=== PATIENT | male | born 1940 | race Caucasian/White ===

== ENCOUNTER 2020-10-19 23:23 | Inpatient (IN) | payer MEDICARE, SELFPAY ==
--- NOTE | ~2020-10-19 | XR_ITS ---
EXAMINATION: XR CHEST CLINICAL INFORMATION: Shortness of breath COMPARISON: None TECHNIQUE: Frontal view of the chest was obtained. FINDINGS: Diffuse patchy interstitial and alveolar opacities are present throughout both lungs. No appreciable pneumothorax or pleural effusion on these images. Sternal wires and cardiac leads overlie the chest. Cardiac meniscal contours are unremarkable. No acute osseous findings. XR/XR chest 1V IMPRESSION: Patchy diffuse bilateral interstitial and alveolar opacities, most typical of viral pneumonia. Pulmonary edema is on the differential, though felt to be less likely.
[2020-10-19 23:25] VITALS: BP 119/60; PULSE 73; RESP 30; O2SAT 78; BMI 24.8
[2020-10-19 23:30] VITALS: O2SAT 100
[2020-10-19 23:31] VITALS: PULSE 70; RESP 30; O2SAT 100
--- NOTE | 2020-10-19 23:33 | PC.NURSE ---
RT and MD at bedside for primary eval. Pt on Bipap @ 05/08, 100%, satting @ 100%.
--- NOTE | 2020-10-19 23:34 | ECG_ITS ---
Test Reason : DIFF BREATHING Blood Pressure : / mmHG Vent. Rate : 071 BPM Atrial Rate : 071 BPM P-R Int : 200 ms QRS Dur : 122 ms QT Int : 414 ms P-R-T Axes : 091 -30 054 degrees QTc Int : 449 ms Sinus rhythm Left axis deviation Possible Anterior infarct , age undetermined Inferior infarct with ST elevation Abnormal ECG No previous ECGs available Referred By: Soha Hui Electronically Signed By:BETY LANE MD
--- NOTE | 2020-10-19 23:41 | PC.NURSE ---
Labs including BCX x2 and lactic obtained and sent, Pt reports relief on Bipap, remains @ 10/5 and @ 75% maintaining an O2 sat of 100% at this time. Pt able to speak full sentences, reports relief of SOB, states his breathing is much easier. Continue to monitor.
[2020-10-19 23:43] VITALS: TEMP 36.3
[2020-10-19 23:52] LABS: Basophils Percent Auto 0.1 % (0-2); Eosinophils Absolute Auto 0.1 X10*3/uL (0.0-0.4); Eosinophils Percent Auto 1.2 % (0-4); Hematocrit 22.7 % (42-52); Imm Gran Pct Auto 1.3 % (0.0-0.4); Lymphocytes Absolute Auto 0.3 X10*3/uL (1.2-4.9); MANUAL DIFF FLAG SCAN; Mean Corpuscular HGB Conc 29.1 g/dl (31.0-36.0); Mean Corpuscular Hemoglobin 29.3 pg (27.0-33.0); Mean Corpuscular Volume 100.9 fL (80-98); Mean Platelet Volume 10.9 fL (9.4-12.4); Monocytes Absolute Auto 0.6 X10*3/uL (0.1-1.2); Monocytes Percent Auto 7.4 % (2-11); Neutrophils Absolute Auto 6.6 X10*3/uL (2.0-8.3); Red Blood Count 2.25 X10*6/uL (4.60-5.80); SCAN SMEAR FLAG 1; White Blood Count 7.7 X10*3/uL (4.8-10.8)
[2020-10-19 23:55] LABS: Platelet Count 79 X10*3/uL (160-400)
--- NOTE | 2020-10-19 23:58 | ED_ITS ---
HPI - SOB/Dyspnea General Chief Complaint: Dyspnea Stated Complaint: RESP DISTRESS Time Seen by Provider: 10/19/20 23:28 History of Present Illness HPI Narrative: Patient 80 years old history of Coronavirus back in September. Also history of COPD. History of atrial fibrillation currently on Eliquis. History of bypass surgery. Presented today with having increasing shortness of breath. Coughing. Requiring increasing in amount of oxygen. Patient baseline on oxygen at home. Related Data Allergies Allergy/AdvReac Type Severity Reaction Status Date / Time No Known Allergies Allergy Verified 10/19/20 23:29 Review of Systems Review of Systems: Unable to obtain review of systems secondary to patient's condition [facility] Past Medical History Medical History Anemia Asthma Cardiomyopathy COPD (chronic obstructive pulmonary disease) COVID-19 Diabetes GERD (gastroesophageal reflux disease) Heart failure Hypertension Kidney failure Pneumonia Social History Social History Advance Directives: No Advance Directives Information Provided: No Physical Exam Vital Signs: Vital Signs: Last Vital Signs Temp 97.4 F 10/19/20 23:43 Pulse 82 10/20/20 02:44 Resp 26 H 10/20/20 02:44 BP 117/43 L 10/20/20 02:44 Pulse Ox 96 10/20/20 02:44 Body Mass Index 24.8 Appearance: Respiratory distress short of breath Eyes: Pupils equal, round and reactive to light. ENT: Pharynx normal. Neck: Normal inspection. Neck supple. No lymph nodes noted. No crepitus CVS: Normal heart rate and rhythm. Pulses normal. Normal S1 and S2 Respiratory: Increased work of breathing short of breath Abdomen: Soft and nontender. No rigidity. No distention. good BS x4 Skin: Skin warm and dry. Normal skin color. Normal skin turgor. Extremities: No lower extremity edema. Neurovascular intact to all extremities. No Lacerations. No Rash Neuro: No motor deficit. No sensory deficit. Moving all extermities. No slurred speech MDM - SOB/Dyspnea MDM Narrative Medical decision making narrative: Positive increased shortness of breath generalized malaise weakness. Patient chest x-ray consistent with having bilateral infiltrate. Question secondary to coronavirus versus congestive heart failure. Cultures were obtained lactate were obtained patient started on empiric antibiotic treatment given the possibility of pneumonia. Patient had coronavirus back in September. Question this is something else. Patient has an elevated BNP of over 2000. Cannot rule out the possibility of congestive heart failure. Patient is already on BiPAP. Given additional Lasix. Will monitor very carefully. Cannot give full 30 cc/kilos of IV fluids secondary to patient's condition possibility of congestive heart failure. Patient's ABG show ed a pH of 7.31 with a PaO2 of the 120s range. No gross CO2 retention. Patient's condition less likely secondary to a pulmonary emboli given patient is on Eliquis. His hemoglobin is low at 6.6. This is similar to previous. But lower than baseline. Will very gently give blood. Risk and benefit of blood explained to patient. Patient's case discussed with the vp communications. Patient's condition improving with time. Currently still require 75% of oxygen on BiPAP. 02:40. There is no ICU bed available at [facility]. Patient became more increasingly short of breath. Requiring 85% oxygen. Patient does not want to be transferred to [facility]. After consultation will attempt to transfer to [facility] At 03:00. Patient's case discussed with [facility]. Dr. Bandar [place] accepted patient. At 03:10 patient's repeat lactate came back less than 2. [facility] [address] will monitor urine output carefully. Differential Diagnosis Differential diagnosis: Likely congestive heart failure and pneumonia Medical Records Attestation: I reviewed the patient's medical records. Lab Data Attestation: I reviewed the patient's lab results. Result diagrams: 10/19/20 23:39 10/19/20 23:39 Labs: Lab Results 10/19/20 10/19/20 10/19/20 Range/Units 23:39 23:39 23:39 WBC 7.7 (4.8-10.8) X10*3/uL RBC 2.25 L (4.60-5.80) X10*6/uL Hgb 6.6 L* (14.0-18.0) g/dl Hct 22.7 L (42-52) % MCV 100.9 H (80-98) fL MCH 29.3 (27.0-33.0) pg MCHC 29.1 L (31.0-36.0) g/dl RDW 19.0 H (11.0-16.0) % Plt Count 79 L D (160-400) X10*3/uL MPV 10.9 (9.4-12.4) fL Immature Gran % (Auto) 1.3 H (0.0-0.4) % Neut % (Auto) 86.0 H (45-73) % Lymph % (Auto) 4.0 L (20-40) % [place] % (Auto) 7.4 (2-11) % Eos % (Auto) 1.2 (0-4) % Baso % (Auto) 0.1 (0-2) % Lymph # (Auto) 0.3 L (1.2-4.9) X10*3/uL [place] # (Auto) 0.6 (0.1-1.2) X10*3/uL Eos # (Auto) 0.1 (0.0-0.4) X10*3/uL Baso # (Auto) 0.0 (0.0-0.2) X10*3/uL Abs Immat Gran (auto) 0.10 H (0.00-0.03) X10*3/uL Absolute Neuts (auto) 6.6 (2.0-8.3) X10*3/uL Absolute Nucleated RBC 0.000 (0.0-0.012) X10*3/uL Nucleated RBC % (auto) 0.0 (0.0-0.2) /100WBC Smear Tech's Comments VERIFIED PT 18.8 H (10.8-13.0) SEC INR 1.6 H (0.9-1.1) Hold Blue Top SEE NOTE O2 Saturation % ABG pH at Pt Temp (7.35-7.45) ABG pCO2 at Pt Temp (32-45) mmHg ABG pO2 at Pt Temp (83-108) mmHg ABG HCO3 (22-26) mmol/L ABG Base Excess (Actual) mmol/L Sodium 140 (135-145) mmol/L Potassium 4.8 (3.3-5.1) mmol/L Chloride 107 (96-108) mmol/L Carbon Dioxide 20 L (22-29) mmol/L Anion Gap 18 (12-20) BUN 103 H* D (9-16) mg/dL Creatinine 4.45 H* (0.5-1.4) mg/dL Estim Creat Clear Calc 12.3 Estimated GFR 13 Random Glucose 228 H D (60-115) mg/dL Lactic Acid (0.5-2.0) mmol/L Lactic Acid Fup @ 2Hr (0.5-2.0) mmol/L Calcium 7.8 L (8.4-10.2) mg/dL Troponin I High Sens (<3.5-35.0) ng/L B-Natriuretic Peptide (<100) pg/mL Blood Type Antibody Screen Antibody Identification Antigen Identification Crossmatch 10/19/20 10/19/20 10/20/20 Range/Units 23:39 23:39 00:23 WBC (4.8-10.8) X10*3/uL RBC (4.60-5.80) X10*6/uL Hgb (14.0-18.0) g/dl Hct (42-52) % MCV (80-98) fL MCH (27.0-33.0) pg MCHC (31.0-36.0) g/dl RDW (11.0-16.0) % Plt Count (160-400) X10*3/uL MPV (9.4-12.4) fL Immature Gran % (Auto) (0.0-0.4) % Neut % (Auto) (45-73) % Lymph % (Auto) (20-40) % [place] % (Auto) (2-11) % Eos % (Auto) (0-4) % Baso % (Auto) (0-2) % Lymph # (Auto) (1.2-4.9) X10*3/uL [place] # (Auto) (0.1-1.2) X10*3/uL Eos # (Auto) (0.0-0.4) X10*3/uL Baso # (Auto) (0.0-0.2) X10*3/uL Abs Immat Gran (auto) (0.00-0.03) X10*3/uL Absolute Neuts (auto) (2.0-8.3) X10*3/uL Absolute Nucleated RBC (0.0-0.012) X10*3/uL Nucleated RBC % (auto) (0.0-0.2) /100WBC Smear Tech's Comments PT (10.8-13.0) SEC INR (0.9-1.1) Hold Blue Top O2 Saturation % ABG pH at Pt Temp (7.35-7.45) ABG pCO2 at Pt Temp (32-45) mmHg ABG pO2 at Pt Temp (83-108) mmHg ABG HCO3 (22-26) mmol/L ABG Base Excess (Actual) mmol/L Sodium (135-145) mmol/L Potassium (3.3-5.1) mmol/L Chloride (96-108) mmol/L Carbon Dioxide (22-29) mmol/L Anion Gap (12-20) BUN (9-16) mg/dL Creatinine (0.5-1.4) mg/dL Estim Creat Clear Calc Estimated GFR Random Glucose (60-115) mg/dL Lactic Acid 2.3 H* (0.5-2.0) mmol/L Lactic Acid Fup @ 2Hr (0.5-2.0) mmol/L Calcium (8.4-10.2) mg/dL Troponin I High Sens 492.6 H (<3.5-35.0) ng/L B-Natriuretic Peptide 2415 H (<100) pg/mL Blood Type A Positive Antibody Screen POSITIVE Antibody Identification Anti-K Antigen Identification K Antigen - NEGATIVE Crossmatch See Detail 10/20/20 10/20/20 Range/Units 01:09 02:20 WBC (4.8-10.8) X10*3/uL RBC (4.60-5.80) X10*6/uL Hgb (14.0-18.0) g/dl Hct (42-52) % MCV (80-98) fL MCH (27.0-33.0) pg MCHC (31.0-36.0) g/dl RDW (11.0-16.0) % Plt Count (160-400) X10*3/uL MPV (9.4-12.4) fL Immature Gran % (Auto) (0.0-0.4) % Neut % (Auto) (45-73) % Lymph % (Auto) (20-40) % [place] % (Auto) (2-11) % Eos % (Auto) (0-4) % Baso % (Auto) (0-2) % Lymph # (Auto) (1.2-4.9) X10*3/uL [place] # (Auto) (0.1-1.2) X10*3/uL Eos # (Auto) (0.0-0.4) X10*3/uL Baso # (Auto) (0.0-0.2) X10*3/uL Abs Immat Gran (auto) (0.00-0.03) X10*3/uL Absolute Neuts (auto) (2.0-8.3) X10*3/uL Absolute Nucleated RBC (0.0-0.012) X10*3/uL Nucleated RBC % (auto) (0.0-0.2) /100WBC Smear Tech's Comments PT (10.8-13.0) SEC INR (0.9-1.1) Hold Blue Top O2 Saturation 99.0 % ABG pH at Pt Temp 7.31 L (7.35-7.45) ABG pCO2 at Pt Temp 39 (32-45) mmHg ABG pO2 at Pt Temp 129 H (83-108) mmHg ABG HCO3 20 L (22-26) mmol/L ABG Base Excess (Actual) -5.6 mmol/L Sodium (135-145) mmol/L Potassium (3.3-5.1) mmol/L Chloride (96-108) mmol/L Carbon Dioxide (22-29) mmol/L Anion Gap (12-20) BUN (9-16) mg/dL Creatinine (0.5-1.4) mg/dL Estim Creat Clear Calc Estimated GFR Random Glucose (60-115) mg/dL Lactic Acid (0.5-2.0) mmol/L Lactic Acid Fup @ 2Hr 1.4 (0.5-2.0) mmol/L Calcium (8.4-10.2) mg/dL Troponin I High Sens (<3.5-35.0) ng/L B-Natriuretic Peptide (<100) pg/mL Blood Type Antibody Screen Antibody Identification Antigen Identification Crossmatch ABG Data ABG results: PH of 7.31 with pCO2 of 39. PaO2 boxing 120. No CO2 retention. ECG Data Interpretation: Sinus heart rate was 70 intraventricular conduction delay was noted. There is no acute ST segment elevation noted. Q-wave over the inferior knee noted Critical Care Time Critical Care Time Total Critical Care Time: 90 Attestation: I have personally provided 90 minutes of critical care time exclusive of time spent on separately billable procedures. Time includes review of lab data, radiology results, discussion with consultants, and monitoring for potential decompensation. Interventions were performed as documented above Discharge Plan Discharge Clinical Impression: Congestive heart failure, Pneumonia, Renal failure Patient Disposition: [facility]
[2020-10-19 23:59] LABS: Hemoglobin 6.6 g/dl (14.0-18.0)
[2020-10-20] VITALS (7 sets, daily range): BP systolic 98–119; BP diastolic 38–52; PULSE 63–100; RESP 23–28; TEMP 35.6–35.7; O2SAT 83–100
[2020-10-20 00:07] LABS: INTERNATIONAL NORM RATIO 1.6 (0.9-1.1); Prothrombin Time 18.8 SEC (10.8-13.0)
[2020-10-20 00:11] LABS: Lactic Acid 2.3 mmol/L (0.5-2.0); SLIDE REVIEW VERIFIED
--- NOTE | 2020-10-20 00:15 | PC.NURSE ---
Per lab, 4 hour delay for blood due to positive antibody. aware.
[2020-10-20] MEDS: 0.9 % Sodium Chloride 1,000 ML 999 ML IV (00:16)
[2020-10-20] MEDS: cefEPime HCl 1 GM in 0.9 % Sodium Chloride 50 ML IV (00:16)
[2020-10-20 00:25] LABS: Anion Gap 18 (12-20); B Type Natriuretic Peptide 2415 pg/mL (<100); Blood Urea Nitrogen 103 mg/dL (9-16); Calcium 7.8 mg/dL (8.4-10.2); Carbon Dioxide 20 mmol/L (22-29); Chloride 107 mmol/L (96-108); Creatinine Clr Calc Pharmacy 12.3; Estimated Glomerular Filt Rate 13; Glucose Random 228 mg/dL (60-115); Potassium 4.8 mmol/L (3.3-5.1); Sodium 140 mmol/L (135-145); Troponin-I High Sensitivity 492.6 ng/L (<3.5-35.0)
--- NOTE | 2020-10-20 00:35 | PC.NURSE ---
Pt medicated per MAR with ABX and IVF. T&S obtained by this RN. Second IV line established. VSS. Continue to monitor.
[2020-10-20] MEDS: vancomycin HCL 1,000 MG in 0.9 % Sodium Chloride 250 ML 270 MG IV (00:49)
--- NOTE | 2020-10-20 00:50 | PC.NURSE ---
RT at bedside for ABG.
[2020-10-20] MEDS: Furosemide 40 MG/4 ML VIAL IVPUSH (01:32)
[2020-10-20 01:43] LABS: ABG Base Excess -5.6 mmol/L; ABG HCO3 20 mmol/L (22-26); ABG pCO2 39 mmHg (32-45); ABG pH 7.31 (7.35-7.45); ABG pO2 129 mmHg (83-108)
--- NOTE | 2020-10-20 01:46 | PC.NURSE ---
This RN at bedside to administer Lasix. Pt found sitting at the very end of the bed with his feet on the ground reporting increased SOB after bipap settings were changed from 75% O2 to 60% O2. Pt found satting @ 91%. MD and RT aware. RT increased O2 back to 70%, O2 sat increased to 98%, pt reports relief of SOB. Pt assisted into POC, provided with a pillow for comfort. Flu swab obtained and sent. Pt medicated with Lasix per OCT. VSS at this time. Call zelaya within reach, continue to monitor.
[2020-10-20 01:49] LABS: Reflex Lactate? Lactic Acid Added
[2020-10-20 02:31] LABS: Influenza A PCR NEGATIVE (Negative); Influenza B PCR NEGATIVE (Negative); Resp Syncy Virus RNA Qual PCR NEGATIVE (Negative); SARS COV2 PCR INHOUSE NEGATIVE (Negative)
[2020-10-20 02:39] LABS: Glucose Urine UA NEG (NEG); Leukocyte Esterase Urine NEG (NEG); Nitrite Urine NEG (NEG); Urine Blood TRACE (NEG); Urine Ketones NEG (NEG); Urine Protein TRACE MG/DL (NEG-TRACE)
[2020-10-20 02:39] LABS: OBS Int Ctl Valid YES; OBS1 NEGATIVE (NEGATIVE)
--- NOTE | 2020-10-20 02:46 | PC.NURSE ---
Pt found supine in bed, pt had scooted himself all the way down. Pt found to be satting @ 83-84% with a good pleth while on Bipap @ 10/5 and 70% O2. O2 increased to 90%, sat increased to 96%. VSS at this time. MD at bedside discussing plan to transfer to [facility] or [facility], pt requesting [facility]. welder tech at bedside placing devi. Continue to monitor.
--- NOTE | 2020-10-20 02:46 | PM.CCHP ---
History of Present Illness Date of Service: 10/20/20 Chief Complaint: Acute respiratory failure/CHF exacerbation/COVID pneumonia HPI: 80-year-old patient with underlying history of chronic anemia, ischemic cardiomyopathy, CAD/ CABG ? number of vessels; atrial fibrillation on Eliquis, COPD, asthma, diabetes, GERD, heart failure, hypertension, renal failure with unknown baseline, pneumonia, COVID-19 infection in September of this year. Patient is a resident [facility], was transported to the emergency room complaints of shortness of breath. On arrival to the ER, patient appear to be in moderate distress, he was already on BiPAP, his workup reveals no white count, he is chronically anemic, his renal function has worsened with a current creatinine of 4.45 when his baseline is 3.2, proBNP is 2400 and his troponin is 492. The patient however reports no chest pain. The chest x-ray does reveal patchy diffuse bilateral interstitial and alveolar opacities most typical of viral pneumonia however pulmonary edema is within the differential. Patient did not get IV fluid due to risk of fluid overload, he is receiving blood and was given empiric antibiotics, steroids and Lasix. Currently patient appears comfortable although it is evident that he is still using accessory muscles. Denies any chest pain, fever or chills. Patient will be transferred to the ICU for further care and will continue with BiPAP ROS: Unable to perform due to respiratory failure and use of BiPAP, respiratory distress. Past Medical History: As above Past Surgical History: Unknown Family history: Noncontributory Social History: Lives at [place] CODE STATUS: Full code Contacts or HCP: Esme VictoriaLucius (spouse) [phone]; Kadie Katherine (daughter) [phone]; Chapis Wall (daughter) [phone] Allergies: NKDA Home Medications: Add ER 550 Amiodarone 200 mg daily Norvasc 5 mg daily Atorvastatin 40 mg daily Bumex 1 mg daily Coreg 25 mg daily Duloxetine and ER 20 mg daily Eliquis 2.5 mg daily Iron sulfate 325 mg daily Fluconazole 200 mg daily Imdur ER120 mg daily Ranolazine ER 500 mg daily Repair in all 1 mg daily The Spiriva 1.25 mcg inhaled PHYSICAL EXAM: SEPSIS EXAM DONE AT 2:45 A.M. VS: BLOOD PRESSURE 117/43, HEART RATE OF 82, RESPIRATIONS 26, O2 SAT 96% ON BIPAP 10/5 FIO2 OF 90. General: Alert oriented x3 mod distress on BiPap, FOLLOWS COMMANDS. Skin: Intact, no lesions, edema, erythema, clubbing or cyanosis. No ulcers. HEENT: Head is normocephalic, atraumatic, pupils equal round reactive to light accommodation bilaterally. Extraocular movements appear intact. Buccal mucosa is moist, Neck is supple without lymphadenopathy. Cardiac: Clear S1-S2, no murmurs rubs or gallops. Pulmonary: Coarse lung sounds with crackles bilaterally Abdomen: Protuberant, positive bowel sounds in all 4 quadrants. Soft, nontender, no rebound or guarding. Musculoskeletal: Moving all 4 extremities upon request a major joints, there is no crepitus or tenderness. The strength is 5/5 bilaterally and throughout all 4 extremities. Gait not assessed at this point. Neurologic: As above, cranial nerves 2-12 are grossly intact. No focal deficits noted. Motor strength as above. Vascular: 2+ pulses upper and lower extremities distally. Less than 2nd capillary refill in fingers and toes SIGNIFICANT LABORATORY DATA: WHITE BLOOD CELL 7.7, HEMOGLOBIN 6.6, HEMATOCRIT 22.7 (APPEARS BASELINE) MCV 100.9, PLATELETS 79, PT 18.8, INR 1.6. ABG SHOWS PH OF 7.31 PCO2 OF 39, PO2 OF 129, HC03 OF 20, BASE EXCESS-5.6. A sodium 140, potassium 4.8, chloride 107, carbon dioxide 20, anion gap 18, BUN 103, creatinine 4.45 (baseline 3.2.); Lactic acid 2.3 (repeat 1.4), calcium 7.8, troponin 492, ProBNP 2415. Urinalysis negative. Coronavirus test pending. REVIEW OF IMAGES: Chest x-ray IMPRESSION: Patchy diffuse bilateral interstitial and alveolar opacities, most typical of viral pneumonia. Pulmonary edema is on the differential, though felt to be less likely. EKG REVIEW: ASSESSMENT AND PLAN: 1. Hypoxic respiratory failure likely right heart failure 2. Anemia of chronic disease (macrocytic) rule out B12, folate, micro bleeding 3. Acute on chronic kidney disease 4. Patchy diffuse interstitial and alveolar opacities most likely viral pneumonia (COVID-19) 5. Reactive lactic acidosis NO SEPSIS EVIDENCE Transferred to ICU, monitor vital signs and I's and nose, continue diuresis, occult blood is negative, monitor renal function and obtain renal consult in the morning. Most likely the patient will need further care, if his coronavirus test comes back positive even though he was already infected, I do not think that he needs any further care at this point he is out of the window for remdesivir. At this point the patient may just need supportive care and an echo. The patient will continue to be in the emergency room due to our inability to have the patient in the ICU for now, this was discussed directly with the ER physician. Continue with home medications. GI PROPHYLAXIS: P.o. Prilosec DVT PROPHYLAXIS: On Eliquis 299 clinical update; I was just informed by nursing personnel that the patient's quickly decompensated in the ER, this point the ER physician has talked to the patient and the agreement has been made to transfer the patient to [facility]. Critical care time used for critical evaluation of this patient, diagnosis, treatment and coordination of care, review her records and documentation TOTAL CRITICAL CARE TIME 90 MIN . Patient's care was discussed in detail with Dr. Rivas. He is aware of all the above as well as the plan of care for this patient. [facility] Past Medical History Medical History Anemia Asthma Cardiomyopathy COPD (chronic obstructive pulmonary disease) COVID-19 Diabetes GERD (gastroesophageal reflux disease) Heart failure Hypertension Kidney failure Pneumonia Social History Social History Advance Directives: No Advance Directives Information Provided: No Meds Allergies Allergy/AdvReac Type Severity Reaction Status Date / Time No Known Allergies Allergy Verified 10/19/20 23:29 Active Medications: Current Medications Generic Name Dose Route Start Last Admin Trade Name Freq PRN Reason Stop Dose Admin Bumetanide 1 mg 10/20/20 02:42 Bumetanide 1 Mg/4 Ml Vial IVPUSH 10/20/20 02:43 ONCE ONE Protocol Furosemide 40 mg 10/20/20 02:41 Furosemide 40 Mg/4 Ml Vial IVPUSH 10/20/20 02:42 ONCE ONE Protocol Dexamethasone Sodium Phosphate 51 mls @ 208 mls/hr 10/20/20 02:37 10 mg/ Sodium Chloride IV 10/20/20 02:51 ONCE ONE Physical Exam Vital Signs: Vital Signs: Last Vital Signs Temp 97.4 F 10/19/20 23:43 Pulse 82 10/20/20 02:44 Resp 26 H 10/20/20 02:44 BP 117/43 L 10/20/20 02:44 Pulse Ox 96 10/20/20 02:44 Body Mass Index 24.8 Results Labs CBC and Chem 7: 10/19/20 23:39 10/19/20 23:39 Labs: Laboratory Results - last 24 hr 10/19/20 10/19/20 10/19/20 23:39 23:39 23:39 Hgb 6.6 L* Hct 22.7 L MCV 100.9 H MCH 29.3 MCHC 29.1 L RDW 19.0 H Plt Count 79 L D MPV 10.9 Immature Gran % (Auto) 1.3 H Neut % (Auto) 86.0 H Lymph % (Auto) 4.0 L [place] % (Auto) 7.4 Eos % (Auto) 1.2 Baso % (Auto) 0.1 Lymph # (Auto) 0.3 L [place] # (Auto) 0.6 Eos # (Auto) 0.1 Baso # (Auto) 0.0 Abs Immat Gran (auto) 0.10 H Absolute Neuts (auto) 6.6 Absolute Nucleated RBC 0.000 Nucleated RBC % (auto) 0.0 Smear Tech's Comments VERIFIED PT 18.8 H INR 1.6 H Hold Blue Top SEE NOTE O2 Saturation ABG pH at Pt Temp ABG pCO2 at Pt Temp ABG pO2 at Pt Temp ABG HCO3 ABG Base Excess (Actual) Anion Gap 18 BUN 103 H* D Creatinine 4.45 H* Estim Creat Clear Calc 12.3 Estimated GFR 13 Random Glucose 228 H D Lactic Acid Calcium 7.8 L Troponin I High Sens B-Natriuretic Peptide Stool Occult Blood Blood Type Antibody Screen Antibody Identification Antigen Identification Crossmatch 10/19/20 10/19/20 10/20/20 23:39 23:39 00:23 Hgb Hct MCV MCH MCHC RDW Plt Count MPV Immature Gran % (Auto) Neut % (Auto) Lymph % (Auto) [place] % (Auto) Eos % (Auto) Baso % (Auto) Lymph # (Auto) [place] # (Auto) Eos # (Auto) Baso # (Auto) Abs Immat Gran (auto) Absolute Neuts (auto) Absolute Nucleated RBC Nucleated RBC % (auto) Smear Tech's Comments PT INR Hold Blue Top O2 Saturation ABG pH at Pt Temp ABG pCO2 at Pt Temp ABG pO2 at Pt Temp ABG HCO3 ABG Base Excess (Actual) Anion Gap BUN Creatinine Estim Creat Clear Calc Estimated GFR Random Glucose Lactic Acid 2.3 H* Calcium Troponin I High Sens 492.6 H B-Natriuretic Peptide 2415 H Stool Occult Blood Blood Type A Positive Antibody Screen POSITIVE Antibody Identification Anti-K Antigen Identification K Antigen - NEGATIVE Crossmatch See Detail 10/20/20 10/20/20 01:09 02:29 Hgb Hct MCV MCH MCHC RDW Plt Count MPV Immature Gran % (Auto) Neut % (Auto) Lymph % (Auto) [place] % (Auto) Eos % (Auto) Baso % (Auto) Lymph # (Auto) [place] # (Auto) Eos # (Auto) Baso # (Auto) Abs Immat Gran (auto) Absolute Neuts (auto) Absolute Nucleated RBC Nucleated RBC % (auto) Smear Tech's Comments PT INR Hold Blue Top O2 Saturation 99.0 ABG pH at Pt Temp 7.31 L ABG pCO2 at Pt Temp 39 ABG pO2 at Pt Temp 129 H ABG HCO3 20 L ABG Base Excess (Actual) -5.6 Anion Gap BUN Creatinine Estim Creat Clear Calc Estimated GFR Random Glucose Lactic Acid Calcium Troponin I High Sens B-Natriuretic Peptide Stool Occult Blood NEGATIVE Blood Type Antibody Screen Antibody Identification Antigen Identification Crossmatch Imaging Radiologist's Impressions: Impressions Chest X-Ray 10/20/20 00:00
[2020-10-20 02:54] LABS: ~Lactic Acid-LAB USE ONLY 1.4 mmol/L (0.5-2.0)
[2020-10-20 02:57] LABS: Appearance Urine CLEAR; Color Urine YELLOW
[2020-10-20 03:11] LABS: Bacteria Urine 1+ /LPF; Mucus Urine 1+ /LPF; Squamous Epithelial Cell Urine 1+ /LPF; UACC CULT YES
--- NOTE | 2020-10-20 03:12 | PC.NURSE ---
Plan to transfer to [facility] ICU as ICU full at this time. Per MD to hold Lasix and Bumex as pt is going to be transferred. Awaiting EMS.
[2020-10-20 03:22] LABS: Troponin-I High Sensitivity 532.8 ng/L (<3.5-35.0)
--- NOTE | 2020-10-20 03:41 | PC.NURSE ---
Report given to Indu FINISHING ROOM SUPERVISOR @ [facility]. Per blood bank, RBCs ready.
--- NOTE | 2020-10-20 03:55 | PC.NURSE ---
EMS at bedside preparing pt for transport to [facility]. Per graphics manager to cancel blood due to pending transfer.
--- NOTE | 2020-10-20 13:40 | MHC.CM.PN ---
Pt in ED holding awaiting for ICU bed for BiPap support: Call placed to pt's spouse Esme to obtain assessment information and to inquire on HCP status. Message Left: will await callback. CM to follow for assessment of d/c needs
--- NOTE | 2021-10-15 05:04 | PM.DS ---
DS: Providers Provider Date of Service: 10/20/20 Date of discharge: 10/20/20 Admitting clinician: Antwan Patrick Attending physician on admission: Flo Rivas Attending physician on discharge: Flo Rivas Discharging clinician: Antwan Patrick DS: Transfer Hospital Acceptance Reason for Transfer: patient's choice for treatment of acute hypoxic respiratory failure Name of Facility: [facility] Accepting Provider: please review ER documentation DS: Summary Status at Discharge Cognitive/behavioral status at discharge: Full Functional status at discharge: bed bound (Unknown of current capabilities) Time Spent with Patient Time attestation: Total time spent providing and/or coordinating discharge services: Discharge coordination time: Greater than 30 minutes Quality: Stroke Does the patient have a stroke diagnosis?: No DS: Data Data Completed and Pending Completed studies during hospitalization [Text1]: Procedures Assistance with Respiratory Ventilation, Less than 24 Consecutive Hours, Continuous Positive Airway Pressure (10/20/20) Discharge Plan Discharge Patient Disposition: [facility] Discharge Date/Time: 10/20/20 04:21
== END 2020-10-20 04:21 | disposition short-term general hospital (02) | DRG 177 ==
LOC: HO.ED 10-20 01:54 → HO.EDOVER 10-20 02:29
PROVIDERS: Admitting Provider Anesthesiology; Emergency Provider Emergency Medicine Emergency Medical Services; PCP Family Medicine; Visit Provider Anesthesiology
DX: U07.1 COVID-19 (principal); J12.82 Pneumonia due to coronavirus disease 2019; J96.01 Acute respiratory failure with hypoxia; I13.0 Hypertensive heart and chronic kidney disease with heart failure and stage 1 through stage 4 chronic kidney disease, or unspecified chronic kidney disease; N17.9 Acute kidney failure, unspecified; K21.9 Gastro-esophageal reflux disease without esophagitis; Z86.16 Personal history of COVID-19; E11.22 Type 2 diabetes mellitus with diabetic chronic kidney disease; I50.810 Right heart failure, unspecified; N18.9 Chronic kidney disease, unspecified; J45.909 Unspecified asthma, uncomplicated; I48.91 Unspecified atrial fibrillation; D63.1 Anemia in chronic kidney disease; I25.10 Atherosclerotic heart disease of native coronary artery without angina pectoris; Z95.1 Presence of aortocoronary bypass graft; Z79.01 Long term (current) use of anticoagulants; Z79.899 Other long term (current) drug therapy
CPT/HCPCS: 0241U; 36415; 71045; 80048; 81001; 82272; 83605; 83880; 84484; 85025; 85060; 85610; 86850; 86870; 86885; 86900; 86902; 86905; 86920; 86922; 87040; 87086; 87088; 87186; 93005; 94660; 96365; 96368; 96375; 99285; 99291; 99292; J0692; J1100; J1940; J3370

== ENCOUNTER 2020-10-23 00:37 | Outpatient (REF) | payer MEDICARE, SELFPAY ==
--- NOTE | 2021-10-15 05:04 | P.DS_ITS ---
DS: Providers Provider Date of Service: 10/20/20 Date of discharge: 10/20/20 Admitting clinician: Antwan Patrick Attending physician on admission: Flo Rivas Attending physician on discharge: Flo Rivas Discharging clinician: Antwan Patrick DS: Transfer Hospital Acceptance Reason for Transfer: patient's choice for treatment of acute hypoxic respiratory failure Name of Facility: [facility] Accepting Provider: please review ER documentation DS: Summary Hospital Course Hospital Course: Admission/discharge diagnosis: 1.??? Hypoxic respiratory failure likely right heart failure 2.??? Anemia of chronic disease (macrocytic) rule out B12, folate, micro ble eding 3.??? Acute on chronic kidney disease 4. Patchy diffuse interstitial and alveolar opacities most likely viral pneumonia (COVID-19) 5. Reactive lactic acidosis NO SEPSIS EVIDENCE HPI/hospital course 80-year-old patient with underlying history of chronic anemia, ischemic cardiomyopathy, CAD/ CABG ? number of vessels; atrial fibrillation on Eliquis, COPD, asthma, diabetes, GERD, heart failure, hypertension, renal failure with unknown baseline, pneumonia, COVID-19 infection in September of this year.? Patient is a resident [facility], was transported to the emergency room complaints of shortness of breath.? On arrival to the ER, patient appear to be in moderate distress, he was already on BiPAP, his workup reveals no white count, he is chronically anemic, his renal function has worsened with a current creatinine of 4.45 when his baseline is 3.2, proBNP is 2400 and his troponin is 492.? The patient however reports no chest pain.? The chest x-ray does reveal patchy diffuse bilateral interstitial and alveolar opacities most typical of viral pneumonia however pulmonary edema is within the differential.? Patient did not get IV fluid due to risk of fluid overload, he is receiving blood and was given empiric antibiotics, steroids and Lasix. Currently patient appears comfortable although it is evident that he is still using accessory muscles.? The patient was going to be transferred to the ICU however we were informed that the patient quickly decompensated in the emergency room and upon discussing with him, he had agreed to be transferred to [facility], the patient was transferred directly from the ER, he did not come to the ICU. Status at Discharge Cognitive/behavioral status at discharge: Full Functional status at discharge: bed bound (Unknown of current capabilities) Time Spent with Patient Time attestation: Total time spent providing and/or coordinating discharge services: Discharge coordination time: Greater than 30 minutes Quality: Stroke Does the patient have a stroke diagnosis?: No DS: Data Data Completed and Pending Completed studies during hospitalization [Text1]: Procedures Assistance with Respiratory Ventilation, Less than 24 Consecutive Hours, Continuous Positive Airway Pressure (10/20/20) Discharge Plan Discharge Patient Disposition: [facility]fer [facility] Discharge Orders: Discharge Order (Routine); Ordered 10/15/21 Ordered By: Antwan Patrick Discharge Date/Time: 10/23/20 00:38
== END 2020-10-23 00:38 | disposition critical access hospital (66) ==
LOC: HO.MMNH1L 00:37
PROVIDERS: Visit Provider Family Medicine
DX: Z13.89 Encounter for screening for other disorder (principal)